=== PATIENT | female | born 1940 | race Two or more races ===

== ENCOUNTER 2017-06-18 02:50 | Emergency (ER) | payer OTHER ==
[2017-06-18 03:22] VITALS: BP 117/56; PULSE 66; BMI 23.4
--- NOTE | 2017-06-18 03:43 | PDOC ---
History of Present Illness - General Chief Complaint: Pain, Acute Stated Complaint: LOWER ABDOMINAL PAIN Time Seen by Provider: 06/18/17 03:29 History Source: Patient Exam Limitations: No Limitations - History of Present Illness Travel History: No Initial Comments: 06/18/17 03:38 This is a 76-year-old woman with past medical history of hypertension, hypothyroidism, mitral valve prolapse who presents to the emergency department with sudden onset left flank pain radiating to the left groin. Patient states she was sleeping when she felt the pain, which woke her from her sleep. Pain started at approximately 2 AM. Patient rates the pain 9 out of 10 describes as sharp. Patient is experiencing nausea but has not vomited. Patient reports all day yesterday she was voiding multiple times but did not experience any hematuria or dysuria. Patient denies any fevers, chills, chest pain, shortness of breath, vaginal bleeding. Timing/Duration: reports: constant Past History - Past Medical History Allergies/Adverse Reactions: Allergies Allergy/AdvReac Type Severity Reaction Status Date / Time No Known Allergies Allergy Verified 06/18/17 03:21 Home Medications: Ambulatory Orders Aspirin [ASA -] 81 mg PO ONCE 06/18/17 Atorvastatin Ca [Lipitor] 10 mg PO HS 06/18/17 Carvedilol [Coreg -] 6.25 mg PO BID 06/18/17 Levothyroxine [Synthroid -] 100 mcg PO DAILY 06/18/17 COPD: No HTN: Yes Hypercholesterolemia: Yes Thyroid Disease: Yes (hypo) - Suicide/Smoking/Psychosocial Hx Smoking History: Never smoked Hx Alcohol Use: No Substance Use Type: None Review of Systems - Review of Systems Able to Perform ROS?: Yes Is the patient limited [place] proficient: No Constitutional: No: Symptoms Reported HEENTM: No: Symptoms Reported Respiratory: No: Symptoms reported Cardiac (ROS): No: Symptoms Reported ABD/GI: Yes: See HPI : Yes: See HPI Musculoskeletal: No: Symptoms Reported Integumentary: No: Symptoms Reported Neurological: No: Symptoms reported Endocrine: No: Symptoms Reported *Physical Exam - Vital Signs Last Vital Signs Temp Pulse Resp BP Pulse Ox 66 26 H 117/56 100 06/18/17 03:21 06/18/17 03:21 06/18/17 03:21 06/18/17 03:21 - Physical Exam General Appearance: Yes: Appropriately Dressed. No: Apparent Distress HEENT: positive: EOMI, PRAMOD Neck: positive: Trachea midline, Supple. negative: Tender Respiratory/Chest: positive: Lungs Clear, Normal Breath Sounds. negative: Chest Tender, Respiratory Distress, Accessory Muscle Use Cardiovascular: positive: Regular Rhythm, Regular Rate, S1, S2. negative: Edema , JVD, Murmur Gastrointestinal/Abdominal: positive: Normal Bowel Sounds, Soft, Tenderness ( right pelvic area) Musculoskeletal: positive: Normal Inspection. negative: CVA Tenderness Extremity: positive: Normal Capillary Refill, Normal Inspection, Normal Range of Motion Integumentary: positive: Normal Color, Dry, Warm Neurologic: positive: vault keeper II-XII NML intact, Fully Oriented, Alert, Normal Mood/ Affect, Normal Response, Motor Strength 12/19 Medical Decision Making - Medical Decision Making 06/18/17 03:42 A/P: This is a 76-year-old woman with past medical history of hypertension, hypothyroidism, mitral valve prolapse who presents to the emergency department with sudden onset left flank pain radiating to the left groin. Patient states she was sleeping when she felt the pain, which woke her from her sleep. Pain started at approximately 2 AM. Patient rates the pain 9 out of 10 describes as sharp. Patient is experiencing nausea but has not vomited. Patient reports all day yesterday she was voiding multiple times but did not experience any hematuria or dysuria. Patient denies any fevers, chills, chest pain, shortness of breath, vaginal bleeding. Patient abdomen with normoactive bowel sounds. Abdomen is soft and nondistended. Tender to left pelvic area. No CVA tenderness elicited. Differential diagnoses include renal calculi, muscular pain, diverticulitis most likely renal calculi giving acute onset of symptoms and nausea. Patient has not expressed any diarrhea making diverticulitis less likely. I'll give the patient 1 L normal saline bolus. I will give the patient 30 mg Toradol IV. I will collect a urinalysis. I'll perform a spiral CT scan to assess for renal calculi. 06/18/17 05:[address] scan as read by Mary Ann Gerardo M.D.- millimeter stone at the left UVJ causing minimal to moderate hydrouretonephrosis. Right renal cyst. Unremarkable progress and gallbladder. No bowel obstruction, colitis, free fluid or free air. Normal appendix. 1.9 cm bone island proximal right femur. 60-70% chronic compression fracture at T12. I discussed the physical exam findings, ancillary test results and final diagnoses with the patient. I answered all of the patient's questions. The patient was satisfied with the care received and felt comfortable with the discharge plan and treatment plan. The patient will call [facility] within 96 hours to arrange follow-up and will return to the Emergency Department with any new, persistent or worsening symptoms. *DC/Admit/Observation/Transfer Diagnosis at time of Disposition: Renal calculus, left - Discharge Dispostion Disposition: HOME Condition at time of disposition: Stable Admit: No - Referrals Referrals: Rui Masters MD [Primary Care Provider] - Gallo Latif MD [Staff Physician] - Hiren Donato MD., MD [Staff Physician] - - Patient Instructions Printed Discharge Instructions: DI for Kidney Stones Additional Instructions: Keep well-hydrated. Take Motrin as needed for pain. Follow manufacturers instructions for dosage. You have been given a referral for urologist. Please strain your urine and collect stone and if you collect the stone bring to urologist for evaluation of the stone. Return to emergency department for worsening pain, nausea, vomiting, fever, severe pain in the lower back, or any other concerns. Thank you very much for choosing us to provide your emergent healthcare needs.
[2017-06-18] MEDS ORDERED: KETOROLAC TROMETHAMINE 30 MG/1 ML VIAL IVPUSH ONE (03:45)
[2017-06-18] MEDS ORDERED: SODIUM CHLORIDE 1,000 ML IV STA (03:45)
[2017-06-18] MEDS ORDERED: KETOROLAC TROMETHAMINE 30 MG/1 ML VIAL ONE (03:50)
[2017-06-18 05:07] LABS: URINE APPEARANCE CLEAR; URINE BILIRUBIN NEGATIVE (NEGATIVE); URINE BLOOD 1+ (NEGATIVE); URINE COLOR YELLOW; URINE GLUCOSE (UA) NEGATIVE (NEGATIVE); URINE KETONE NEGATIVE (NEGATIVE); URINE NITRITE NEGATIVE (NEGATIVE); URINE PROTEIN NEGATIVE (NEGATIVE); URINE UROBILINOGEN NEGATIVE mg/dL (0.2-1.0)
[2017-06-18 05:23] LABS: URINE HYALINE CAST 1 /lpf; URINE MUCUS RARE; URINE RBC 23 /hpf (0-3); URINE WBC 8 /hpf (3-5)
[2017-06-18 09:41] LABS: URINE LEUK ESTERASE Negative (NEGATIVE)
== END 2017-06-18 06:18 | disposition home or self-care (01) ==
LOC: JER 02:50
PROC: 3E0333Z Introduction of Anti-inflammatory into Peripheral Vein, Percutaneous Approach (ICD-10-PCS; principal; 2017-06-18)
DX: N13.2 Hydronephrosis with renal and ureteral calculous obstruction (principal); I10 Essential (primary) hypertension; E78.00 Pure hypercholesterolemia, unspecified; E03.9 Hypothyroidism, unspecified; I34.1 Nonrheumatic mitral (valve) prolapse; Z79.82 Long term (current) use of aspirin
CPT/HCPCS: 74176; 81003; 81015; 99281-25

== ENCOUNTER 2017-06-23 07:24 | Day surgery (SDC) | payer OTHER ==
[2017-06-22 14:24] VITALS: BMI 23.4
[2017-06-23] MEDS ORDERED: ceFAZolin SODIUM 1 GM VIAL ONE (09:26)
[2017-06-23] MEDS ORDERED: LIDOCAINE HCL/PF 2% SDV 5ML VIAL ONE (09:26)
[2017-06-23] MEDS ORDERED: KETOROLAC TROMETHAMINE 30 MG/1 ML VIAL ONE (09:26)
[2017-06-23] MEDS ORDERED: MIDAZOLAM HCL 2 MG/2 ML SINGLE DOSE VIAL ONE ×2 (09:27→09:39)
[2017-06-23] MEDS ORDERED: ceFAZolin SODIUM 1 GM VIAL IVPB ONE (09:27)
[2017-06-23] MEDS ORDERED: PROPOFOL 20 ML ONE (09:27)
--- NOTE | 2017-06-23 09:53 | OP ---
Operative Note - Note: Operative Date: 06/23/17 Pre-Operative Diagnosis: left ureteral calculus Operation: Left ESWL Post-Operative Diagnosis: Same as Pre-op Surgeon: Hiren Donato MD. Anesthesia: MAC
[2017-06-23] MEDS ORDERED: ONDANSETRON 4 MG/2 ML VIAL IVPUSH PRN (10:11)
[2017-06-23] MEDS ORDERED: PROMETHAZINE HCL 25 MG/1 ML VIAL IVPUSH PRN (10:11)
[2017-06-23] MEDS ORDERED: oxyCODONE HCL 5 MG TABLET PO PRN (10:11)
[2017-06-23] MEDS ORDERED: LACTATED RINGERS SOLUTION 1,000 ML IV SCH (10:15)
[2017-06-23 10:59] VITALS: TEMP 97.9
--- NOTE | 2017-06-23 13:43 | OP ---
DATE OF OPERATION: 06/23/2017 PREOPERATIVE DIAGNOSIS: Left ureteral calculus. POSTOPERATIVE DIAGNOSIS: Left ureteral calculus. PROCEDURE PERFORMED: Left extracorporeal shock wave lithotripsy. SURGEON: Hiren Donato MD INDICATIONS: The patient is a 76-year-old woman with a history of renal calculi, who presented with renal colic and on preoperative imaging was found to have an approximately 5-mm obstructing distal ureteral calculus with hydronephrosis. After discussing treatment options, the patient elected to undergo the above-stated procedure. The risks, benefits and alternative treatments were discussed in detail. All questions were answered. DESCRIPTION OF PROCEDURE: The patient was brought to the operating room and placed in the supine position. Once the stone was visualized using 3D fluoroscopy, the patient was sedated and given intravenous antibiotics. At this time, approximately 3000 shocks were delivered in electromagnetic fashion. The stone appeared to change position and shape at the termination of the case. The patient tolerated the procedure well and was brought to the recovery room in stable and satisfactory condition. Mac FISH/[id number]
[2017-06-23] MEDS ORDERED: oxyCODONE HCL 5 MG TABLET ONE (13:46)
[2017-06-23 15:58] VITALS: BP 127/67; PULSE 55
== END 2017-06-23 15:40 | disposition home or self-care (01) ==
LOC: JASU-SURG 07:24 → JASU-ENDO 07:24 → JASU-SURG 15:40
PROVIDERS: ATTEND Urology
PROC: 0TF7XZZ Fragmentation in Left Ureter, External Approach (ICD-10-PCS; principal; 2017-06-23 09:00)
DX: N20.1 Calculus of ureter (principal)
CPT/HCPCS: 94760

== ENCOUNTER 2022-08-23 15:30 | Observation (INO) | payer OTHER ==
[2022-08-23 16:07] VITALS: BMI 25.2
[2022-08-23] MEDS ORDERED: ACETAMINOPHEN 1000 MG/100 ML BAG IVPB ONE (18:13)
[2022-08-23 18:20] LABS: INR 1.02 (0.83-1.09); PROTHROMBIN TIME (PATIENT) 11.7 SEC (9.7-13.0)
[2022-08-23 18:23] LABS: ACTIVATED PTT 30.6 SECONDS (25.2-36.5)
[2022-08-23 18:32] LABS: BASO % 2.1 % (0-2.0); CHLORIDE 104 mmol/L (98-107); EOS % 1.3 % (0-4.5); HEMATOCRIT 41.9 % (32.4-45.2); LYMPH % 32.8 % (8-40); MCH 32.9 pg (25.7-33.7); MCHC 33.5 g/dl (32.0-36.0); MEAN CELL VOLUME 98.2 fl (80-96); MEAN PLT VOLUME 10.3 fl (7.5-11.1); MONO % 8.8 % (3.8-10.2); PLATELET COUNT 179 10^3/uL (134-434); RBC 4.26 M/mm3 (3.60-5.2); RDW 12.7 % (11.6-15.6); SODIUM 140 mmol/L (136-145); WHITE BLOOD COUNT 5.4 K/mm3 (4.0-10.0)
[2022-08-23 18:34] LABS: ALBUMIN 4.2 g/dl (3.4-5.0); ANION GAP 6 MMOL/L (8-16); CALCIUM 9.7 mg/dL (8.5-10.1); CO2 30 mmol/L (21-32); GLUCOSE,RANDOM 101 mg/dL (74-106)
[2022-08-23 18:35] LABS: BLOOD UREA NITROGEN 20.2 mg/dL (7-18)
[2022-08-23 18:37] LABS: CHOLESTEROL 224 mg/dL (50-200); CREATININE 0.7 mg/dL (0.55-1.3); SGOT/AST 19 U/L (15-37)
[2022-08-23 18:38] LABS: LDL CHOLESTEROL (ONLY SJRH) 126 mg/dL (5-100); SGPT/ALT 28 U/L (13-61); TRIGLYCERIDES 158 mg/dL (0-150)
[2022-08-23 18:39] LABS: BILIRUBIN,TOTAL 0.5 mg/dL (0.2-1); TOT PROT 7.4 g/dl (6.4-8.2)
[2022-08-23 18:40] LABS: ALK PHOS 97 U/L (45-117); HDL CHOLESTEROL 76 mg/dL (40-60)
[2022-08-23] MEDS ORDERED: ACETAMINOPHEN INJECTION 100 ML IVPB ONE (18:45)
[2022-08-23 18:53] LABS: ERYTHROCYTE SEDIMENTATION RATE 13 mm/hr (0-30)
[2022-08-23] MEDS ORDERED: ASPIRIN 81 MG CHEWABLE TABLETS PO ONE (20:10)
[2022-08-23] MEDS ORDERED: ASPIRIN 81 MG CHEWABLE TABLETS ONE (20:19)
[2022-08-23] MEDS ORDERED: ATORVASTATIN CA 40 MG TABLET (FP) PO SCH (22:00)
[2022-08-24 02:16] VITALS: RESP 18
[2022-08-24] MEDS: CARVEDILOL 6.25 MG TABLET (FP) PO SCH ×2 (06:41→10:12)
[2022-08-24] MEDS ORDERED: CARVEDILOL 6.25 MG TABLET (FP) ONE (06:42)
[2022-08-24] MEDS ORDERED: LOSARTAN POTASSIUM 50 MG TABLET ONE (06:43)
[2022-08-24] MEDS: LOSARTAN POTASSIUM 50 MG TABLET PO SCH ×3 (06:44→10:12)
[2022-08-24] MEDS ORDERED: LEVOTHYROXINE NA 100 MCG TABLET (FP) PO SCH (07:00)
[2022-08-24 07:02] VITALS: TEMP 97.6
[2022-08-24] MEDS ORDERED: LEVOTHYROXINE NA 50 MCG TABLET (FP) ONE (07:28)
[2022-08-24 08:12] LABS: CALCIUM 8.9 mg/dL (8.5-10.1)
[2022-08-24 08:13] LABS: BLOOD UREA NITROGEN 15.1 mg/dL (7-18); MAGNESIUM 1.9 mg/dL (1.8-2.4)
[2022-08-24 08:16] LABS: CREATININE 0.7 mg/dL (0.55-1.3)
[2022-08-24 08:18] LABS: PHOSPHOROUS 4.2 mg/dL (2.5-4.9)
[2022-08-24] MEDS ORDERED: ENOXAPARIN NA (PORCINE) 40 MG/0.4 ML DISP.SYRIN SQ SCH (10:00)
[2022-08-24] MEDS ORDERED: ASPIRIN 81 MG CHEWABLE TABLETS PO SCH (10:00)
[2022-08-24] MEDS ORDERED: ASPIRIN 81 MG CHEWABLE TABLETS ONE (10:15)
[2022-08-24] MEDS ORDERED: ENOXAPARIN NA (PORCINE) 40 MG/0.4 ML DISP.SYRIN SQ ONE (10:15)
[2022-08-24 14:48] VITALS: BP 146/73; PULSE 70
== END 2022-08-24 16:31 | disposition home or self-care (01) ==
LOC: JER 15:30 → OBSVTOIN 17:55 → JERBED 17:55 → INTOOBSV 17:55
PROVIDERS: ADMIT Internal Medicine; ATTEND Internal Medicine
PROC: 3E033NZ Introduction of Analgesics, Hypnotics, Sedatives into Peripheral Vein, Percutaneous Approach (ICD-10-PCS; principal; 2022-08-23)
PROC: 3E023GC Introduction of Other Therapeutic Substance into Muscle, Percutaneous Approach (ICD-10-PCS; 2022-08-23)
DX: G45.0 Vertebro-basilar artery syndrome (principal); I10 Essential (primary) hypertension; R26.81 Unsteadiness on feet; E78.5 Hyperlipidemia, unspecified; E03.9 Hypothyroidism, unspecified; I34.1 Nonrheumatic mitral (valve) prolapse; R42 Dizziness and giddiness
CPT/HCPCS: 0241U-QW; 36415; 70450-TC; 70496-TC; 70498-TC; 70551-TC; 71046-TC-FY; 80048; 80053; 80061; 83036; 83735; 84100; 84439; 84443; 84484; 85025; 85610; 85651; 85730; 86140; 86850; 86900; 86901; 93005; 93010; 96372; 96374; 99285-25; G0378